=== PATIENT | male | born 1950 | race American Indian/Alaskan Native ===

== ENCOUNTER 2021-01-21 12:47 | Outpatient (CLI) | payer MEDICARE ==
--- NOTE | 2021-01-21 14:24 | XRay Report ---
LEFT HIP 2 VIEWS INDICATION / CLINICAL INFORMATION: LEFT HIP PAIN. COMPARISON: 04/23/2014 FINDINGS: Left total hip arthroplasty that is normally located. There may be osteolysis around the acetabular c omponent. Moderately advanced degenerative changes seen in the right hip Signer Name: Arturo Bull MD FACBouchra Signed: 01/21/2021 2:20 PM Workstation Name: [id number]
== END 2021-01-21 12:48 | disposition home or self-care (01) ==
LOC: XRAY 12:47
PROVIDERS: ATTEND Orthopaedic Surgery
DX: M17.12 Unilateral primary osteoarthritis, left knee (principal)

== ENCOUNTER 2021-02-26 09:38 | Day surgery (SDC) | payer MEDICARE ==
[~2021-02-26 09:38] MED LIST: BUPIVACAINE/PF (0.5%) 5 MG/1 ML 30 ML VIAL INFILTRATI ONE; LIDOCAINE (1%) 10 MG/1 ML VIAL 20 ML MDV INFILTRATI ONE; LIDOCAINE (1%) 10 MG/1 ML VIAL 20 ML MDV ONE
[2021-02-26] MEDS ORDERED: LIDOCAINE (1%) 10 MG/1 ML VIAL 20 ML MDV INFILTRATI ONE (13:06)
[2021-02-26] MEDS ORDERED: BUPIVACAINE/PF (0.5%) 5 MG/1 ML 30 ML VIAL INFILTRATI ONE (13:11)
[2021-02-26 13:41] VITALS: BP 128/92
--- NOTE | 2021-02-26 13:58 | Procedure Note ---
Date of procedure: 02/26/21 Pre-op diagnosis: Chronic low back pain Post-op diagnosis: same Procedure: Lumbar facet blocks at left L2 through L5 Procedure The patient was brought to the OR and placed prone onto the OR table, the lumbar spine was prepped and draped in the usual sterile manner. A timeout procedure was done to identify the patient and the correct levels of nerve block being performed the patient was awake during the procedure. Using C-arm fluoroscopy the L5 through L2 levels were visualized in both the PA and 45 oblique views 20-gauge spinal needles were inserted again under direct fluoroscopic control after placing the spinal needles and the correct position and Marcaine injection was performed using 1% without epinephrine. The patient tolerated the procedure and no complications Anesthesia: local Surgeon: RAÚL LEWIS Estimated blood loss: minimal Pathology: none Condition: stable Disposition: observation
--- NOTE | 2021-02-26 16:19 | XRay Report ---
Fluoroscopic lumbar spine images INDICATION: Pain FINDINGS: Fluoroscopic images 4 facet injections from L2 through L5. Total fluoroscopy time 29 second s. Signer Name: Wilber Call MD Signed: 02/26/2021 4:14 PM Workstation Name: [id number]
== END 2021-02-26 09:39 | disposition home or self-care (01) ==
LOC: OR 09:38
PROVIDERS: ATTEND Orthopaedic Surgery
DX: M54.5 Low back pain (principal); G89.29 Other chronic pain; E78.00 Pure hypercholesterolemia, unspecified; M19.90 Unspecified osteoarthritis, unspecified site; J44.9 Chronic obstructive pulmonary disease, unspecified; M47.817 Spondylosis without myelopathy or radiculopathy, lumbosacral region; F17.210 Nicotine dependence, cigarettes, uncomplicated; Z98.890 Other specified postprocedural states; Z96.642 Presence of left artificial hip joint; Z79.899 Other long term (current) drug therapy; Z79.82 Long term (current) use of aspirin
CPT/HCPCS: 72100

== ENCOUNTER 2021-05-07 10:28 | Outpatient (CLI) | payer MEDICARE ==
[2021-05-07 11:23] LABS: Blood Urea Nitrogen 17 mg/dL (9-20)
--- NOTE | 2021-05-07 13:59 | Cat Scan Report ---
CTA CHEST WITH CONTRAST INDICATION / CLINICAL INFORMATION: THORACIC AORTIC ANEURYSM, WITHOUT RUPTURE OMNI 350 100 ML. TECHNIQUE: Axial CT images were obtained through the chest after injection of IV contrast. 3 plane KS P and/or 3D reconstructions were produced. All CT scans at this location are performed using CT dose reduction for ALARA by means of automated exposure control. COMPARISON: None available. FINDINGS: PULMONARY ARTERIES: No central or segmental pulmonary embolus. THORACIC AORTA: Mild calcified and noncalcified atheromatous plaque throughout the thoracic aorta and great vessels. 2 small areas of focal outpouching of the descending thoracic aorta, measuring 7 mm ( series 2 image 78) and 5 mm (series 2 image 90) Ascending thoracic aorta measures 4.4 cm at the level of the pulmonary artery. Descending thoracic aorta measures 3.3 cm in greatest dimension at this lev el. No evidence of rupture or dissection. HEART: Mild cardiac enlargement without pericardial effusion. ADENOPATHY: No significant adenopathy. LUNGS/PLEURA: No focal airspace consolidation. No pleural effusion. No pneumothorax. ADDITIONAL FINDINGS: None. UPPER ABDOMEN: No acute findings. SKELETAL STRUCTURES: No significant osseous abnormality. IMPRESSION: 1. Ascending thoracic aortic aneurysm, measuring up to 4.4 cm. 2. Moderate calcified and noncalcified atheromatous plaque with 2 small areas of focal outpouching in volving the descending thoracic aorta, may reflect small penetrating atheromatous ulcers. 3. No acute findings in the chest. Signer Name: Ludwin Garcia MD Signed: 05/07/2021 1:55 PM Workstation Name: [id number]
== END 2021-05-07 10:29 | disposition home or self-care (01) ==
LOC: CT 10:28
PROVIDERS: ATTEND Internal Medicine Cardiovascular Disease
DX: I71.2 Thoracic aortic aneurysm, without rupture (principal); I51.7 Cardiomegaly; I70.0 Atherosclerosis of aorta
CPT/HCPCS: 36415; 71275; 82565; 84520; Q9967